=== PATIENT | male | born 1960 | race African-American/Black ===

== ENCOUNTER 2021-08-23 10:33 | Day surgery (SDC) | payer OTHER ==
[~2021-08-23] VITALS: Ht 177.8 cm; Wt 120.2 kg
[2021-08-23] MEDS ORDERED: LIDOCAINE 2% 100 MG/5 ML UJET TP ONE (12:57)
[2021-08-23] MEDS ORDERED: MIDAZOLAM 2 MG/2 ML VIAL ONE (12:57)
[2021-08-23] MEDS ORDERED: fentaNYL citrate 0.05 MG/ML VIAL ONE (12:57)
[2021-08-23] MEDS ORDERED: MIDAZOLAM 2 MG/2 ML VIAL IVP ONE ×2 (13:35→15:05)
[2021-08-23] MEDS ORDERED: fentaNYL citrate 0.05 MG/ML VIAL IVP ONE ×2 (13:35→15:05)
== END 2021-08-23 14:06 | disposition home or self-care (01) ==
LOC: MDS 10:33 → MMU 11:35 → MDS 14:06
PROVIDERS: ATTEND Internal Medicine Gastroenterology
DX: K62.5 Hemorrhage of anus and rectum (principal); K21.9 Gastro-esophageal reflux disease without esophagitis; K64.9 Unspecified hemorrhoids; J45.909 Unspecified asthma, uncomplicated; I10 Essential (primary) hypertension; E78.00 Pure hypercholesterolemia, unspecified; Z79.899 Other long term (current) drug therapy; E66.9 Obesity, unspecified; Z68.38 Body mass index [BMI] 38.0-38.9, adult; Z20.822 Contact with and (suspected) exposure to COVID-19
CPT/HCPCS: 43235; 45378; 87426; J2250; J3010